=== PATIENT | female | born 1950 | race African-American/Black ===

== ENCOUNTER 2020-10-19 12:28 | Inpatient (IN) ==
[2020-10-19 13:06] LABS: Basophils % 0.4 % (0.0-0.8); Eosinophils % 0.3 % (0.00-10.9); Hematocrit 19.4 VOL% (35.7-47.0); Immature Granulocytes % 0.7 %; Immature Granulocytes Absolute 0.07 #; Lymphocytes # 2.1 10*3/uL (1.4-4.0); Lymphocytes % 19.3 % (21.3-54.2); Mean Corpuscular HGB Conc 29.4 GM/DL (32-36); Mean Corpuscular Volume 81.9 FL (87-102); Mean Platelet Volume 9.8 FL (9.6-12.0); NRBC # 0.04 10*3/uL; Neutrophils % 74.3 % (38.7-73.9); Platelet Count 292 T/CUMM (130-400); Red Blood Count 2.37 MC/CUMM (3.8-5.5); Red Cell Distribution Width 17.8 % (9.3-17.3); White Blood Count 10.7 T/CUMM (4-12)
[2020-10-19 13:10] LABS: Hemoglobin 5.7 GM/DL (12.0-16.0)
[2020-10-19] MEDS ORDERED: SODIUM CHLORIDE 0.9% 1,000 ML IV PRN (13:11)
[2020-10-19] MEDS ORDERED: SODIUM CHLORIDE 0.9% 1,000 ML IV STA (13:24)
[2020-10-19] MEDS ORDERED: PANTOPRAZOLE 40 MG VIAL IV STA (13:24)
[2020-10-19 13:28] LABS: PT Patient Result 10.9 SECS (9.8-11.9); Partial Thromboplastin Time 24.5 SECS (23.9-33.8)
[2020-10-19 13:38] LABS: Alanine Aminotransferase 22 U/L (13-56); Albumin 3.6 G/DL (3.4-5.0); Alkaline Phosphatase 100 U/L (45-117); Aspartate Amino Transferase 20 U/L (0-37); Bilirubin,Total < 0.39 MG/DL (0.2-1.0); Blood Urea Nitrogen 17 MG/DL (7-18); Estimated Glom Filtration Rate 61 ML/MIN; Glucose 116 MG/DL (74-106); Osmolality,Calculated 279.5 MOS/KG (273-304); Total Protein 6.9 G/DL (6.4-8.3)
[2020-10-19] MEDS ORDERED: ACETAMINOPHEN 325 MG TABLET PO PRN (14:51)
[2020-10-19] MEDS ORDERED: ONDANSETRON 4 MG/2 ML VIAL IV PRN (14:51)
[2020-10-19] MEDS ORDERED: hydrALAZINE 20 MG/1 ML VIAL IV PRN (14:51)
[2020-10-19] MEDS ORDERED: GLUCAGON 1 MG VIAL IM PRN (14:51)
[2020-10-19] MEDS ORDERED: DEXTROSE 50% 25 GM/50 ML VIAL IV PRN (14:51)
[2020-10-19] MEDS ORDERED: NICOTINE 21 MG/24 HR PATCH TRANSDERM PRN (15:30)
[2020-10-19 15:59] LABS: % Iron Saturation 2.1 % (18-50)
[2020-10-20 01:09] LABS: Hemoglobin 8.9 GM/DL (12.0-16.0)
[2020-10-20 06:27] LABS: Basophils # 0.1 10*3/uL (0.0-0.2); Basophils % 0.6 % (0.0-0.8); Eosinophils # 0.1 10*3/uL (0.0-0.87); Eosinophils % 1.6 % (0.00-10.9); Hematocrit 28.5 VOL% (35.7-47.0); Hemoglobin 9.2 GM/DL (12.0-16.0); Immature Granulocytes % 0.5 %; Immature Granulocytes Absolute 0.04 #; Lymphocytes % 33.4 % (21.3-54.2); Mean Corpuscular HGB Conc 32.3 GM/DL (32-36); Mean Corpuscular Volume 83.6 FL (87-102); Mean Platelet Volume 10.4 FL (9.6-12.0); Monocytes % 7.1 % (1.7-12.7); NRBC # 0.02 10*3/uL; Neutrophils % 56.8 % (38.7-73.9); Platelet Count 221 T/CUMM (130-400); Red Blood Count 3.41 MC/CUMM (3.8-5.5); White Blood Count 8.9 T/CUMM (4-12)
[2020-10-20] MEDS: SODIUM CHLORIDE 0.9% 1,000 ML IV SCH ×3 (06:46→21:12)
[2020-10-20 07:07] LABS: Calcium 8.8 MG/DL (8.5-10.1); Osmolality,Calculated 280.3 MOS/KG (273-304); Risk Ratio 2.33; Thyroid Stimulating Hormone 1.24 uIU/ml (0.358-3.74); VLDL CHOLESTEROL 13.6 MG/DL
[2020-10-20 07:09] LABS: Anisocytosis 2+; Platelet Estimate Normal
[2020-10-20 07:10] LABS: Macrocytosis 1+; Polychromasia Slight; Target Cells Few
[2020-10-20 07:30] LABS: Folate 17.1 NG/ML (5.4-24.0); Vitamin B12 174 PG/ML (211-911)
[2020-10-20] MEDS ORDERED: POTASSIUM CHLORIDE 20 MEQ TABLET PO ONE (07:31)
[2020-10-20 07:34] LABS: Sedimentation Rate-Westergren 37 MM/HR (0-30)
[2020-10-20] MEDS: POTASSIUM CHLORIDE 20 MEQ TABLET PO SCH (09:54)
[2020-10-20] MEDS: PANTOPRAZOLE 40 MG TABLET PO SCH (09:54)
[2020-10-20] MEDS: amLODIPine 10 MG TABLET PO SCH (09:54)
[2020-10-20] MEDS: buPROPion XL 150 MG TABLET PO SCH ×2 (09:54→22:21)
[2020-10-20] MEDS: FERROUS SULFATE 325 MG TABLET PO SCH ×3 (09:54→22:22)
[2020-10-20] MEDS: hydroCHLOROthiazide 12.5 MG CAPSULE PO SCH (09:54)
[2020-10-20] MEDS: ENALAPRIL 20 MG TABLET PO SCH (09:55)
[2020-10-21 06:17] LABS: Basophils % 0.5 % (0.0-0.8); Eosinophils # 0.1 10*3/uL (0.0-0.87); Eosinophils % 1.9 % (0.00-10.9); Hematocrit 28.6 VOL% (35.7-47.0); Immature Granulocytes % 0.4 %; Immature Granulocytes Absolute 0.03 #; Lymphocytes # 2.4 10*3/uL (1.4-4.0); Lymphocytes % 31.4 % (21.3-54.2); Mean Corpuscular HGB Conc 31.5 GM/DL (32-36); Mean Corpuscular Volume 84.1 FL (87-102); Monocytes % 9.9 % (1.7-12.7); NRBC # 0.03 10*3/uL; Neutrophils % 55.9 % (38.7-73.9); Platelet Count 222 T/CUMM (130-400); Red Cell Distribution Width 16.7 % (9.3-17.3); White Blood Count 7.5 T/CUMM (4-12)
[2020-10-21 06:45] LABS: Atypical Lymphocytes Few; Calcium 9.1 MG/DL (8.5-10.1); Eosinophils 1 % (0-10); Hypochromasia 1+; Lymphocytes 33 % (20-55); Microcytosis 1+; Segmented Neutrophils 60 % (50-85); Total Cells Counted 100
[2020-10-21 06:46] LABS: Anisocytosis 1+; Platelet Estimate Normal
[2020-10-21] MEDS: ENALAPRIL 20 MG TABLET PO SCH (09:36)
[2020-10-21] MEDS: hydroCHLOROthiazide 12.5 MG CAPSULE PO SCH (09:36)
[2020-10-21] MEDS: amLODIPine 10 MG TABLET PO SCH (09:36)
[2020-10-21] MEDS: LACTATED RINGERS 1,000 ML IV SCH (10:29)
[2020-10-21] MEDS: FERROUS SULFATE 325 MG TABLET PO SCH ×3 (10:43→20:55)
[2020-10-21] MEDS ORDERED: LIDOCAINE 2% 5 ML VIAL ONE (10:47)
[2020-10-21] MEDS ORDERED: propofoL 200 MG/20 ML VIAL IV ONE (10:47)
[2020-10-21] MEDS: PANTOPRAZOLE 40 MG TABLET PO SCH (11:35)
[2020-10-21] MEDS: buPROPion XL 150 MG TABLET PO SCH ×2 (11:36→20:55)
[2020-10-21] MEDS: POTASSIUM CHLORIDE 20 MEQ TABLET PO SCH (11:36)
[2020-10-21] MEDS ORDERED: BISACODYL 5 MG TABLET PO ONE (12:00)
[2020-10-21] MEDS: SODIUM CHLORIDE 0.9% 1,000 ML IV SCH (14:13)
[2020-10-21] MEDS ORDERED: POLYETHYLENE GLYCOL POWDER 255 GM BOTTLE PO ONE (18:00)
[2020-10-22 05:12] LABS: Basophils # 0.1 10*3/uL (0.0-0.2); Basophils % 0.7 % (0.0-0.8); Eosinophils # 0.2 10*3/uL (0.0-0.87); Eosinophils % 2.2 % (0.00-10.9); Hematocrit 33.3 VOL% (35.7-47.0); Hemoglobin 10.1 GM/DL (12.0-16.0); Immature Granulocytes % 0.6 %; Immature Granulocytes Absolute 0.05 #; Lymphocytes # 1.9 10*3/uL (1.4-4.0); Lymphocytes % 20.8 % (21.3-54.2); Mean Corpuscular HGB Conc 30.3 GM/DL (32-36); Mean Corpuscular Volume 86.3 FL (87-102); Mean Platelet Volume 10.4 FL (9.6-12.0); Monocytes % 8.2 % (1.7-12.7); NRBC # 0.04 10*3/uL; Neutrophils % 67.5 % (38.7-73.9); Platelet Count 278 T/CUMM (130-400); Red Blood Count 3.86 MC/CUMM (3.8-5.5); Red Cell Distribution Width 17.1 % (9.3-17.3)
[2020-10-22 05:38] LABS: Calcium 9.2 MG/DL (8.5-10.1)
[2020-10-22] MEDS: SODIUM CHLORIDE 0.9% 1,000 ML IV SCH ×3 (07:01→14:44)
[2020-10-22] MEDS: POTASSIUM CHLORIDE RIDER 10 MEQ in PREMIX 1 EACH IV SCH ×5 (08:50→16:09)
[2020-10-22 08:56] LABS: Hemoglobin A1 (Alkaline) 97.6 % (96.5-98.5); Hemoglobin A2 (Alkaline) 2.4 % (1.5-3.5)
[2020-10-22] MEDS: amLODIPine 10 MG TABLET PO SCH (09:23)
[2020-10-22] MEDS: ENALAPRIL 20 MG TABLET PO SCH (09:23)
[2020-10-22] MEDS: hydroCHLOROthiazide 12.5 MG CAPSULE PO SCH (09:23)
[2020-10-22] MEDS: FERROUS SULFATE 325 MG TABLET PO SCH ×3 (09:57→22:05)
[2020-10-22] MEDS ORDERED: propofoL 200 MG/20 ML VIAL IV ONE (12:41)
[2020-10-22] MEDS: LACTATED RINGERS 1,000 ML IV SCH (14:34)
[2020-10-22] MEDS: POTASSIUM CHLORIDE 20 MEQ TABLET PO SCH (14:43)
[2020-10-22] MEDS: buPROPion XL 150 MG TABLET PO SCH ×2 (14:43→22:05)
[2020-10-22] MEDS: PANTOPRAZOLE 40 MG TABLET PO SCH (14:43)
[2020-10-23] MEDS: SODIUM CHLORIDE 0.9% 1,000 ML IV SCH (01:20)
[2020-10-23 07:24] VITALS: BP 104/64
[2020-10-23] MEDS: PANTOPRAZOLE 40 MG TABLET PO SCH (09:08)
[2020-10-23] MEDS: amLODIPine 10 MG TABLET PO SCH (09:08)
[2020-10-23] MEDS: POTASSIUM CHLORIDE 20 MEQ TABLET PO SCH (09:08)
[2020-10-23] MEDS: hydroCHLOROthiazide 12.5 MG CAPSULE PO SCH (09:08)
[2020-10-23] MEDS: buPROPion XL 150 MG TABLET PO SCH (09:08)
[2020-10-23] MEDS: ENALAPRIL 20 MG TABLET PO SCH ×2 (09:09→09:11)
[2020-10-23] MEDS: FERROUS SULFATE 325 MG TABLET PO SCH (09:09)
[2020-10-23] MEDS: LACTATED RINGERS 1,000 ML IV SCH (09:41)
== END 2020-10-23 09:53 | disposition home or self-care (01) | DRG 378 ==
LOC: N.ED 12:28 → SUATTDRO 14:51 → N.EDINP 14:51 → N.3E 16:10
PROVIDERS: ADMIT Internal Medicine; ATTEND Internal Medicine